=== PATIENT | male | born 1940 | race Caucasian/White ===

== ENCOUNTER 2017-09-11 14:45 | Outpatient (RCR) | payer MEDICARE ==
--- NOTE | 2017-08-21 17:22 | PT PLAN OF CARE ---
Physician: MARIAN Schroeder Patient is being seen: 1x/MO Therapist: Nohemy Iniguez, PT, DPT, CLT Medical Diagnosis: Prostate Cancer Treatment Diagnosis: Prostate Cancer Date of Onset: 05/06/17 Date of Initial Evaluation: 05/06/17 Date patient was last seen: 08/21/17 Number of treatments: 5 Number of cancellations/No shows: 0 INTERVENTIONS: Manual Therapy/STM/MET Strengthening/condition Ice/Heat Range of Motion Spinal Stabilization Ultrasound Stretching Iontophoresis Neuromuscular Re-ed Closed Chain Program Electrical Stim Posture/Body mechanics Gait Trg/Balance Trg Biofeedback Home Exercise Program Mech./Manual Traction Therapeutic Activities Pelvic Floor GOALS: In 3 months pt will have back pain centralized to the lumbar spine only and reduced to < 5/10 regularly for increased functional ability to perform ADL's. In Progress In 3 months pt will maintain FACT-G total score greater than 75 and ECOG Performance Status of less or equal to grade 2 indicating maintenance of functional status and mobility. In Progress In 6 months pt will maintain FACT-G total score greater than 75 and ECOG Performance Status of less or equal to grade 2 indicating maintenance of functional status. In Progress In 6 months pt will maintain functional strength tested by MMT of B LE of greater than 4/5 in all major muscle groups for improved functional status for performance of ADL's. In Progress PATIENT'S GOAL: Maintain function with ongoing oncological treatment. Decreased low back pain. Status of Patient's Goals: In Progress Patient Compliance: Good Prognosis: Good Reasons for continuing therapy: Pt maintains function in all his ADL's despite recent increased back pain, and pain remains centralized to the lumbar spine only. In addition pt shows improved activity level with ongoing oncological care actively participating in a home exercise program with his [employer]. Well- being scores remain constant with progression of treatment. Posture: Forward trunk lean with rounded shoulders. ROM: Lumbar Screen ROM: Flexion: pain with full movement, Ext: pt reports relief of pain with full movement, Sidebending: B pain with severe restriction of movement, L rotation: Pain with moderate restrictions of movement, R rotation: no pain with full movement Strength: LE MMT: Hip: Flexion: L 4+/5, R 4/5, Ext: B 4+/5, Abd: B 4+/5, Add: L 4/5, R 4+/5. Knee: Flexion: B 5/5, Extension: B 5/5, Ankle: PF: L 4/5, R 4+/5, DF: B 4/5 Special Tests: ECOG Performance Status: Grade 2 FACT-G 07/11/17: PWB 20/ (Initial 19), SWB 10/ (Initial 19.6), EWB 18/ ( Initial 18), FWB: (Initial 22), Total 70/108 (Initial 78.6/108) FACT-G 07/31/17: PWB 12/ (Initial 19), SWB 11/ (Initial 19.6), EWB 19/ (Initial 18), FWB: / (Initial 22), Total 63/108 (Initial 78.6/108) FACT-G 08/21/17: PWB 12/ (Initial 19), SWB 11/ (Initial 19.6), EWB 19/ ( Initial 18), FWB: (Initial 22), Total 63/108 (Initial 78.6/108) Mobility: Repeated Lumbar Flexion: Pain radiated into B LE to the level of the knee. Extension: pain centralized out of L LE to the lumbar spine only. If you have any questions or concerns please feel free to contact me at . Thank you, Nohemy Iniguez, PT, DPT, CLT MTDD
[~2017-09-11 14:45] MED LIST: ABIR250T PO; ACET-1966 PO; ATOR10TA24 PO; BICA50TA36 PO; BIMA2.5D5 OP; BISA-236 PR; CALC1TAB32 PO; CEPH500C24 PO; COMODPT OD; DEX4 PO; DOCU100C49 PO; GABA-549 PO; LATA2.5D7 OP; MAGN30TA5 PO; METF-410 PO; MIRT-25 PO; MOM PO; MULT1TAB64 PO; OMEG500C5 PO; ONDA8TAB94 PO; OXYB10TA16 PO; OXYC-823 PO; OXYC-830 PO; OXYC5TAB38 PO; POLY17PO25 PO; PRE5 PO; PRED20TA6 PO; TIAG4TAB PO; TOLT2CAP7 PO
--- NOTE | 2017-09-11 17:28 | PT PLAN OF CARE ---
Physician: MARIAN Schroeder Patient is being seen: 1-2x/MO Therapist: Nohemy Iniguez, PT, DPT, CLT Medical Diagnosis: Prostate Cancer Treatment Diagnosis: Prostate Cancer Date of Onset: 05/06/17 Date of Initial Evaluation: 05/06/17 Date patient was last seen: 09/11/17 Number of treatments: 6 Number of cancellations/No shows: 0 INTERVENTIONS: Manual Therapy/STM/MET Strengthening/condition Ice/Heat Range of Motion Spinal Stabilization Ultrasound Stretching Iontophoresis Neuromuscular Re-ed Closed Chain Program Electrical Stim Posture/Body mechanics Gait Trg/Balance Trg Biofeedback Home Exercise Program Mech./Manual Traction Therapeutic Activities Pelvic Floor GOALS: In 3 months pt will have back pain centralized to the lumbar spine only and reduced to < 5/10 regularly for increased functional ability to perform ADL's. In Progress In 3 months pt will maintain FACT-G total score greater than 75 and ECOG Performance Status of less or equal to grade 2 indicating maintenance of functional status and mobility. In Progress In 6 months pt will maintain FACT-G total score greater than 75 and ECOG Performance Status of less or equal to grade 2 indicating maintenance of functional status. In Progress In 6 months pt will maintain functional strength tested by MMT of B LE of greater than 4/5 in all major muscle groups for improved functional status for performance of ADL's. In Progress PATIENT'S GOAL: Maintain function with ongoing oncological treatment. Decreased low back pain. Status of Patient's Goals: In Progress Patient Compliance: Good Prognosis: Good Reasons for continuing therapy: Pt shows increased pain secondary to recent re- injury. However, pain was reduced following repeated lumbar extension and ambulation. Pt continues to have low well-being scores for which he attributes to decreased social support as well as side-effects from treatment. Pt educated about social support groups but denies interest. Pt educated about maintaining activities of enjoyment for emotional well-being and is to be educated next session on lifting mechanics to prevent future injury. Posture: Forward trunk lean with rounded shoulders. ROM: Lumbar Screen ROM: Flexion: pain with full movement, Ext: pt reports relief of pain with full movement, Sidebending: B pain with severe restriction of movement, L rotation: Pain with moderate restrictions of movement, R rotation: no pain with full movement Strength: LE MMT: Hip: Flexion: L 4+/5, R 4/5, Ext: B 4+/5, Abd: B 4+/5, Add: L 4/5, R 4+/5. Knee: Flexion: B 5/5, Extension: B 5/5, Ankle: PF: L 4/5, R 4+/5, DF: B 4/5 Special Tests: ECOG Performance Status: Grade 2 FACT-G 07/11/17: PWB 20/ (Initial 19), SWB 10/ (Initial 19.6), EWB 18/ ( Initial 18), FWB: 22/ (Initial 22), Total 70/108 (Initial 78.6/108) FACT-G 07/31/17: PWB 12/ (Initial 19), SWB 11/ (Initial 19.6), EWB 19/ (Initial 18), FWB: / (Initial 22), Total 63/108 (Initial 78.6/108) FACT-G 08/21/17: PWB 12/ (Initial 19), SWB 11/ (Initial 19.6), EWB 19/ ( Initial 18), FWB: / (Initial 22), Total 63/108 (Initial 78.6/108) FACT-G 09/11/17: PWB 15/ (Initial 19), SWB 13/ (Initial 19.6), EWB 12/ (Initial 18), FWB: 18/ (Initial 22), Total 58/108 (Initial 78.6/108) Mobility: Repeated Lumbar Flexion: Pain radiated into B LE to the level of the knee. Extension: pain centralized out of L LE to the lumbar spine only. If you have any questions or concerns please feel free to contact me at [phone]. Thank you, Nohemy Iniguez, PT, DPT, CLT MTDD
== END 2017-11-19 ==
LOC: PT 14:45
PROVIDERS: ATTEND Nurse Practitioner Family
DX: M54.5 Low back pain (principal); Z98.1 Arthrodesis status; Z92.21 Personal history of antineoplastic chemotherapy; C61 Malignant neoplasm of prostate

== ENCOUNTER 2017-10-21 10:19 | Outpatient (RCR) | payer MEDICARE ==
[2017-08-21 13:11] VITALS: BP 153/73
[2017-08-21] MEDS: HEPARIN FLSH (PORT) 500 UN/5ML IVP PRN (13:14)
[2017-08-21] MEDS: NS(*) 0.9% 500 ML BAG 500 ML IV PRN (13:14)
--- NOTE | 2017-08-21 14:06 | ONC Progress Note - NP.Halsey ---
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 Patient is scheduled to receive cycle 6 of docetaxel today followed by Juliano. Patient had a recent CT scan of the chest abdomen and pelvis and bone scan. These were previously reviewed by Dr. Macias But were not reviewed with patient. Overall they remain relatively stable with no evidence of increased disease. Overall patient is feeling relatively well, he does have fatigue and some swelling in his left hand just over the knuckles. He denies any trauma to the area and we' ll continue to watch to see if the swelling goes down area did patient reports mild nausea 1-2 days post-each chemotherapy. If he sleeps in a chair he does not have emesis. He does have Zofran at home but refuses to take it and denies any need for a different anti-emetic such as Compazine or Phenergan. Problem List (1) Rising PSA level (2) Prostate CA Oncology History Patient was diagnosed with adenocarcinoma of the prostate with a Parker score was 7 (3+4) diagnosed in 1999 and was treated with surgery. He then had clear progression with retroperitoneal adenopathy and a PSA of 15 and started androgen deprivation therapy with Lupron an Casodex. He did well until early 2016 when he developed a PSA of 34. We continued the Lupron and switched him to abiraterone and prednisone instead of the Casodex. Unfortunately his PSA tanvir dramatically above 300. We initiated treatment with docetaxel in April 2017. He has had five cycles, but his PSA has continued to climb. The most recent level was approximately 600. Patient is scheduled to complete cycle 6 of treatment today Psychosocial History Social History Patient is a and is reti Alcohol History He denies abuse Smoking History: No Smoking Status: Former Smoker Medications and Allergies Active Scripts Ondansetron (ZOFRAN ODT) 8 Mg Tab.rapdis, 8 MG PO Q8H, #5 TAB Prov:ISRAEL MORSE ENVIRONMENTAL COMPLIANCE ENGINEER-BC, ONC 05/20/17 Dexamethasone 4 Mg Tab (DEXAMETHASONE 4 MG TAB) 4 Mg Tab, 8 MG PO BID for 3 Days , #30 TAB 1 Refill Prov:ISRAEL MORSE ENVIRONMENTAL COMPLIANCE ENGINEER-BC, ONC 05/06/17 Prednisone 5 Mg Tab (PREDNISONE 5 MG TAB) 5 Mg Tablet, 5 MG PO BID, #60 TAB 3 Refills Prov:ISRAEL MORSE ENVIRONMENTAL COMPLIANCE ENGINEER-BC, ONC 05/06/17 Reported Medications Oxycodone Hcl (OXYCONTIN) 30 Mg Tab.er.12h, 30 MG PO TID 04/30/17 Gabapentin (GABAPENTIN) 300 Mg Capsule, 600 MG PO TID, CAPSULE 04/30/17 Oxycodone Hcl (OXYCONTIN) 10 Mg Tab.er.12h, 10 MG PO PRN, TAB 12/10/16 Multivitamin (MULTI VITAMIN DAILY) 1 Each Tablet, 1 EACH PO DAILY 01/11/16 Calcium Carb & Cit/Vitamin D3 (CALCIUM + D3 ER TABLET) 1 Each Tablet.er, 1 EACH PO QID 01/11/16 [place]-3 Fatty Acids (FISH OIL) 500 Mg Capsule.dr, 1200 MG PO DAILY 01/11/16 Latanoprost (LATANOPROST) 2.5 Ml Drops, 2.5 ML OP DAILY 01/11/16 Brimonidine/Timolol (COMBIGAN EYE DROPS) 1 Drop Drop, 1 DROP OD BID, DROP 01/11/16 Atorvastatin Calcium (LIPITOR) 10 Mg Tablet, 1 TAB PO QDAY, TAB 01/11/16 Mirtazapine (MIRTAZAPINE) 30 Mg Tablet, 30 MG PO QHS 05/23/13 Gabapentin (GABAPENTIN) 300 Mg Capsule, 300 MG PO TID 05/23/13 Metformin Hcl (METFORMIN HCL) 500 Mg Tablet, 2 TAB PO QHS 1000 MG 05/23/13 Metformin Hcl (METFORMIN HCL) 500 Mg Tablet, 1 TAB PO QAM 500 MG 05/23/13 Tolterodine Tartrate (DETROL LA) 2 Mg Cap.er.24h, 4 MG PO QDAY 05/23/13 Tiagabine Hcl (TIAGABINE HCL) 4 Mg Tablet, 4 MG PO QHS 05/23/13 Allergies: Coded Allergies: No Known Drug Allergies (Unverified , 03/25/16) Review of System/Physical Exam Review of Systems All Systems Reviewed/Normal: Yes, Except as Noted Hematologic: Positive for Fatigue (H fatigue and 8 today), Positive for Other ( Patient has pain which he rates as 7-8) Musculoskeletal: Positive for Bone Pain (This remained stable) Neurologic: Other (Swelling in the left hand just over the knuckles without evidence of erythema or pain) Physical Exam Vital Signs Temperature: 97.0 Pulse: 79 BP Systolic: 153 BP Diastolic: 73 Respiratory Rate: 16 O2 SAT: 93 O2 Delivery: Room Air Height (inches) 69.00 Weight lb: 193 Weight oz: Weight Kg (Eliot): Pain: 7 ECOG Score: 1 General: Stable, Well Developed, Well Nourished, Not In Acute Distress HEENT: No Trauma, No Conjunctivitis, No Icterus Neck: Supple Lungs: Clear to Auscultation Heart: Regular Rate, Regular Rhythm, No Gallops Abdomen: Soft and Nontender, No Hepatosplenomegaly Extremities: No Cyanosis, No Clubbing, Edema (Edema noted over the knuckles of the left hand Without evidence of erythema or skin reaction) Lymphadenopathy: No Cervical Psychiatric: Mood appears normal, Affect appears normal Skin: No Skin Rashes, No Bruising, No Purpura Diagnostic Studies Diagnostic Studies Laboratory PSA in June was 602, in July was 320, and currently 315. Laboratory Tests 08/21/17 12:57 Laboratory Tests 06/22/16 00:00: Albumin 4.3, Alkaline Phosphatase 63, Alanine Aminotransferase (ALT/SGPT) 24, Aspartate Amino Transf (AST/SGOT) 25, Blood Urea Nitrogen 18, Calcium Level 10.1 , Chloride Level 101, Carbon Dioxide Level 29, Creatinine 0.82, Glucose Level 90 , Potassium Level 4.8, Sodium Level 141, Total Protein 7.0, Total Bilirubin 0.4 08/21/17 12:57: Albumin 3.9, Alkaline Phosphatase 136, Alanine Aminotransferase (ALT/SGPT) 34, Aspartate Amino Transf (AST/SGOT) 20, Blood Urea Nitrogen 21, Calcium Level 10.1 , Chloride Level 98, Carbon Dioxide Level 23, Creatinine 0.60, Potassium Level 4.6, Sodium Level 135, Total Protein 6.5, Total Bilirubin 0.5, White Blood Count 16.7, Hemoglobin 13.7, Hematocrit 40.8, Platelet Count 250, Neutrophils (% ) (Auto) 96.5, Lymphocytes (%) (Auto) 2.0, Neutrophils # (Auto) 16.1, Lymphocytes # (Auto) 0.3, Glomerular Filtration Rate Calc > 60.0, Random Glucose 386 Assessment and Plan Assessment & Plan Patient is a very pleasant 77-year-old gentleman with the followin. Metastatic prostate cancer. Initial Parker score of 7 (3+4). He is currently on docetaxel Was started on May 07, 2017. His PSA Was 600 in June and is currently at 315.Patient completed re-staging imaging Which was determined to remain relatively stable. There was no evidence of new disease. Patient appears to be currently responding. If PSA does not continue to decrease Dr. Macias believes that he will add carboplatin. We could consider increasing his hormonal therapy as well. We will continue his Lupron indefinitely.CT chest abdomen and pelvis and bone scan were reviewed with patient today. 2. Nausea and vomiting due to chemotherapy.Patient has Zofran at home but does not use it. 3. Palliative intent therapy. Patient is aware of his status Patient will continue on current treatment and will follow with provider with his next cycle. We will continue to monitor PSA. Billing: Return visit level 4. Total time 30 minutes, counseling time 20. I personally spent a total of 35 minutes. Of that 35 minutes was counseling/ coordination of patient care/Review of CT scan and bone scan. See my note above for details. Copies to: BLAS GUTIERREZ NANCY J ENVIRONMENTAL COMPLIANCE ENGINEER-BC, ONC Aug 21, 2017 14:06
[2017-08-21 15:15] VITALS: BP 148/80
--- NOTE | 2017-09-11 12:59 | ONC Progress Note - NP.Halsey ---
Patient History Date of Service Sep 11, 2017 Reason For Visit/HPI Patient is seen in follow-up for his adenocarcinoma of his prostate. Patient is scheduled to receive cycle 7 of docetaxel today followed by Juliano. Patient continues to report that he has mild nausea 1-2 days post-each chemotherapy and then this resolves. He does have Zofran but does not take it. He reports that he is tolerating treatment fairly well. Labs are reviewed today, his calcium is slightly elevated. He has increased fatigue today but has been working outside. His pain remains at the 04/22 which is stable for him. No new concerns today. Oncology History Patient was diagnosed with adenocarcinoma of the prostate with a [place] score was 7 (3+4) diagnosed in 1999 and was treated with surgery. He then had clear progression with retroperitoneal adenopathy and a PSA of 15 and started androgen deprivation therapy with Lupron an Casodex. He did well until early 2016 when he developed a PSA of 34. We continued the Lupron and switched him to abiraterone and prednisone instead of the Casodex. Unfortunately his PSA tanvir dramatically above 300. We initiated treatment with docetaxel in April 2017. He has had five cycles, but his PSA has continued to climb. PSA went as high as 600 and is currently down to 315 Patient is scheduled to complete cycle 7 of treatment today Psychosocial History Social History Patient is a and is retired Alcohol History He denies abuse Smoking History: No Smoking Status: Former Smoker Medications and Allergies Active Scripts Prednisone 5 Mg Tab (PREDNISONE 5 MG TAB) 5 Mg Tablet, 5 MG PO BID, #60 TAB 3 Refills Prov:ISRAEL MORSE ENGAGEMENT LEAD-BC, ONC 09/11/17 Ondansetron (ZOFRAN ODT) 8 Mg Tab.rapdis, 8 MG PO Q8H, #5 TAB Prov:ISRAEL MORSE ENGAGEMENT LEAD-BC, ONC 05/20/17 Dexamethasone 4 Mg Tab (DEXAMETHASONE 4 MG TAB) 4 Mg Tab, 8 MG PO BID for 3 Days , #30 TAB 1 Refill Prov:ISRAEL MORSE ENGAGEMENT LEAD-BC, ONC 05/06/17 Reported Medications Oxycodone Hcl (OXYCONTIN) 30 Mg Tab.er.12h, 30 MG PO TID 04/30/17 Gabapentin (GABAPENTIN) 300 Mg Capsule, 600 MG PO TID, CAPSULE 04/30/17 Oxycodone Hcl (OXYCONTIN) 10 Mg Tab.er.12h, 10 MG PO PRN, TAB 12/10/16 Multivitamin (MULTI VITAMIN DAILY) 1 Each Tablet, 1 EACH PO DAILY 01/11/16 Calcium Carb & Cit/Vitamin D3 (CALCIUM + D3 ER TABLET) 1 Each Tablet.er, 1 EACH PO QID 01/11/16 [place]-3 Fatty Acids (FISH OIL) 500 Mg Capsule.dr, 1200 MG PO DAILY 01/11/16 Latanoprost (LATANOPROST) 2.5 Ml Drops, 2.5 ML OP DAILY 01/11/16 Brimonidine/Timolol (COMBIGAN EYE DROPS) 1 Drop Drop, 1 DROP OD BID, DROP 01/11/16 Atorvastatin Calcium (LIPITOR) 10 Mg Tablet, 1 TAB PO QDAY, TAB 01/11/16 Mirtazapine (MIRTAZAPINE) 30 Mg Tablet, 30 MG PO QHS 05/23/13 Gabapentin (GABAPENTIN) 300 Mg Capsule, 300 MG PO TID 05/23/13 Metformin Hcl (METFORMIN HCL) 500 Mg Tablet, 2 TAB PO QHS 1000 MG 05/23/13 Metformin Hcl (METFORMIN HCL) 500 Mg Tablet, 1 TAB PO QAM 500 MG 05/23/13 Tolterodine Tartrate (DETROL LA) 2 Mg Cap.er.24h, 4 MG PO QDAY 05/23/13 Tiagabine Hcl (TIAGABINE HCL) 4 Mg Tablet, 4 MG PO QHS 05/23/13 Allergies: Coded Allergies: No Known Drug Allergies (Unverified , 03/25/16) Review of System/Physical Exam Review of Systems All Systems Reviewed/Normal: Yes, Except as Noted Gastrointestinal: Nausea (no nausea noted today) Hematologic: Positive for Fatigue (related to 7 out of 10 today) Musculoskeletal: Positive for Bone Pain (rated as 7 out of 10 today remains stable) Neurologic: Numbness of Feet (patient reports diabetic neuropathy) Psychiatric: Other (patient is very tired today) Physical Exam Vital Signs Temperature: 97.9 Pulse: 68 BP Systolic: 148 BP Diastolic: 80 Respiratory Rate: 16 O2 SAT: 93 O2 Delivery: Room Air Height (inches) 69.00 Weight lb: 193 Weight oz: Weight Kg (Eliot): Pain: 7 ECOG Score: 1 General: Stable, Well Developed, Well Nourished, Not In Acute Distress HEENT: No Trauma Neck: Supple Lungs: Clear to Auscultation Heart: Regular Rate, Regular Rhythm, No Gallops Abdomen: Soft and Nontender, No Hepatosplenomegaly Extremities: No Cyanosis, No Edema Psychiatric: Mood appears normal, Affect appears normal Skin: No Skin Rashes, No Bruising, No Purpura Diagnostic Studies Diagnostic Studies Laboratory Item Value Date Time White Blood Count 10.2 k/uL 09/11/17 1300 Hemoglobin 14.2 g/dL 09/11/17 1300 Hematocrit 42.0 % 09/11/17 1300 Platelet Count 191 K/uL 09/11/17 1300 Neutrophils # (Auto) 8.6 K/uL H 09/11/17 1300 Random Glucose 147 mg/dl H 09/11/17 1300 Calcium Level 10.3 mg/dl H 09/11/17 1300 Alkaline Phosphatase 132 U/L H 09/11/17 1300 Prostate Specific Antigen 315.00 ng/ml H 08/21/17 1257 Laboratory Tests 08/21/17 12:57 Laboratory Tests 06/22/16 00:00: Albumin 4.3, Alkaline Phosphatase 63, Alanine Aminotransferase (ALT/SGPT) 24, Aspartate Amino Transf (AST/SGOT) 25, Blood Urea Nitrogen 18, Calcium Level 10.1 , Chloride Level 101, Carbon Dioxide Level 29, Creatinine 0.82, Glucose Level 90 , Potassium Level 4.8, Sodium Level 141, Total Protein 7.0, Total Bilirubin 0.4 08/21/17 12:57: Albumin 3.9, Alkaline Phosphatase 136, Alanine Aminotransferase (ALT/SGPT) 34, Aspartate Amino Transf (AST/SGOT) 20, Blood Urea Nitrogen 21, Calcium Level 10.1 , Chloride Level 98, Carbon Dioxide Level 23, Creatinine 0.60, Potassium Level 4.6, Sodium Level 135, Total Protein 6.5, Total Bilirubin 0.5, White Blood Count 16.7, Hemoglobin 13.7, Hematocrit 40.8, Platelet Count 250, Neutrophils (% ) (Auto) 96.5, Lymphocytes (%) (Auto) 2.0, Neutrophils # (Auto) 16.1, Lymphocytes # (Auto) 0.3, Glomerular Filtration Rate Calc > 60.0, Random Glucose 386, Prostate Specific Antigen 315.00 Assessment and Plan Assessment & Plan Patient is a very pleasant 77-year-old gentleman with the followin. Metastatic prostate cancer. Initial [place] score of 7 (3+4). He is currently on docetaxel which was started on May 07, 2017. His PSA Was 600 in June and is currently at 315. Patient completed re-staging imaging which was determined to remain relatively stable. There was no evidence of new disease. Patient appears to be currently responding to treatment. If PSA does not continue to decrease Dr. Macias believes that he will add carboplatin. We could consider increasing his hormonal therapy as well. We will continue his Lupron indefinitely. 2. Nausea and vomiting due to chemotherapy. Patient has Zofran at home but does not use it. 3. Palliative intent therapy. Patient is aware of his status 4. Back pain. Patient is currently on medication therapy with fairly good results. Pain remain stable. Patient will continue on current treatment and will follow with provider with his next cycle 8. We will continue to monitor PSA. Total time 20 minutes, counseling time 20. ISRAEL MORSE ENGAGEMENT LEAD-BC, ONC Sep 11, 2017 12:59
[2017-09-11 13:08] VITALS: BP 143/71
[2017-09-11] MEDS: DEXAMETHASONE SOD 20MG/5 ML VL IVP PRN (13:43)
[2017-09-11] MEDS: NS(*) 0.9% 500 ML BAG 500 ML IV PRN (14:00)
[2017-09-11] MEDS: HEPARIN FLSH (PORT) 500 UN/5ML IVP PRN (15:55)
[2017-09-11 15:59] VITALS: BP 146/74
[2017-09-30 10:15] VITALS: BP 140/76
[2017-10-02] MEDS: DEXAMETHASONE SOD 20MG/5 ML VL IVP PRN (13:53)
[2017-10-02 15:43] VITALS: BP 151/82
[2017-10-02 16:02] VITALS: BP 148/82
[2017-10-02] MEDS: NS(*) 0.9% 500 ML BAG 500 ML IV PRN (16:04)
[2017-10-02] MEDS: HEPARIN FLSH (PORT) 500 UN/5ML IVP PRN (16:05)
--- NOTE | 2017-10-05 17:05 | ONCOLOGY FOLLOW UP NOTE ---
EVENT DATE: September 30, 2017 CHIEF COMPLAINT/REASON FOR VISIT Mr. Curiel is a pleasant 77-year-old gentleman with metastatic prostate cancer here for followup, on docetaxel cycle seven. HISTORY OF PRESENT ILLNESS Noe returns. His initial Bellflower score was 7 (3+4) diagnosed in 1999 and treated with surgery. He then had clear progression with retroperitoneal adenopathy and a PSA of 15 and started androgen deprivation therapy with Lupron and Casodex. He did well until early 2016 when his PSA went up to 34. We continued the Lupron, but then switched him to abiraterone and prednisone instead of the Casodex. Unfortunately his PSA dramatically tanvir above 300. He initiated treated with docetaxel in April 2017. He has had five cycles, but his PSA did not respond until after five cycles. It has gone from 600 down to 277 after seven cycles. He is just now starting to respond. Overall he is tolerating therapy okay. His nausea is tolerated, but he does not like to take pills for this. We would like to get one more cycle and then take a chemotherapy holiday. 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 This may also be due to a stricture as well. PAST MEDICAL HISTORY 1. Metastatic prostate cancer. 2. Diabetes. 3. Glaucoma. 4. Hyperlipidemia. PAST SURGICAL HISTORY 1. Radical prostatectomy in 1999. 2. He had another surgery many years ago. SOCIAL HISTORY He presented by himself. He is retired. Takes care of multiple acres and several trees. One alcoholic beverage a month. Nonsmoker. He does not have any family. He enjoys woodworking and is thinking about building a garage to be able to do more woodworking. FAMILY HISTORY Noncontributory. REVIEW OF SYSTEMS CONSTITUTIONAL: No fevers, chills. Positive fatigue. HEENT: No headache or vision changes. CARDIOVASCULAR: No chest pain, dyspnea on exertion or edema. RESPIRATORY: No shortness of breath, wheeze, cough. MUSCULOSKELETAL: Positive chronic back pain and arthritis, stable. GASTROINTESTINAL: Positive nausea when he lies flat, but is able to sleep in the chair. This seems to stop around day seven of each cycle. ENDOCRINE: History of diabetes. PSYCHIATRIC: No anxiety or depression. SKIN: No concerning rashes, bruises or new lesions. LYMPHATIC: No new concerning lumps or bumps. GENITOURINARY: Positive discomfort with urination. Thinks he has a "kink" or stricture. Would like him to follow up with Urology to discuss this. PHYSICAL EXAMINATION VITAL SIGNS: Blood pressure 140/76, pulse 67, respiratory rate 16, temperature 96.3 Fahrenheit, oxygen saturation 92% on room air. Weight 95.6 kg. Pain 3/10 , fatigue 7/10. GENERAL: In stable condition, resting comfortably in the chair. HEENT: Normocephalic, atraumatic. ABDOMEN: Soft, nontender, nondistended. No masses. EXTREMITIES: No clubbing, cyanosis or edema. SKIN: No concerning rashes. Remainder of physical exam deferred to amount of time spent in counseling and coordination of care. IMPRESSION AND PLAN Sharif is a pleasant 77-year-old gentleman with the followin. Metastatic prostate cancer with an initial Velma score of 7 (3+4). We added docetaxel on May 07, 2017. His PSA tanvir initially, but has now improved from a peak of 600 down to 277. We will continue Lupron indefinitely. We could consider adding Casodex again and then adding Provenge in the new year. We would like to take a chemotherapy holiday as I think we are starting to get some neuropathy and side effects from the docetaxel. 2. Nausea and vomiting due to chemotherapy. Does not like to take his antiemetics, but they are effective. 3. Palliative intent therapy. I had an extensive discussion with the patient and we discussed the mechanisms and reason for use of immunotherapy with Provenge. He would like to consider this. We could also add the Casodex as that was effective for him. We could also look at enzalutamide as well. 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 I do worry that he will eventually succumb to his disease given its aggressive nature over the past year. I answered all of his questions. Billing: Return visit level 4. Total time 30 minutes, counseling time 20. MTDD
[2017-10-09 13:06] VITALS: BP 127/79
[2017-10-09 13:26] LABS: PLATELET COUNT, AUTOMATED 199 K/uL (150-450)
[~2017-10-21] VITALS: Ht 175.3 cm; Wt 93.8 kg
[~2017-10-21 10:19] MED LIST changes: +ALTEPLASE RECOMB 2 MG VIAL IVP PRN; +DEXTROSE 5%(*) 100 ML BAG 100 ML IVPB PRN; +DOCETAXEL IVPB ONE; +LIDOCAINE/SOD BICARB 8.4% SYR ID PRN; +NS 0.9% IVPB ONE; +NS(*) 0.9% 100 ML BAG 100 ML IVPB PRN; +PALONOSETRON 0.25 MG/5 ML VIAL IVP PRN; +PEGFILGRASTIM 6 MG/0.6 ML KIT SUBQ ONE; +PEGFILGRASTIM 6 MG/0.6 ML SYR SUBQ ONE; +WATER STERILE 10 ML VIAL IVP PRN
[2017-10-21 10:29] VITALS: BP 134/69
--- NOTE | 2017-10-22 17:47 | ONCOLOGY FOLLOW UP NOTE ---
EVENT DATE: October 21, 2016 CHIEF COMPLAINT/REASON FOR VISIT Mr. Curiel is a very pleasant 77-year-old gentleman with metastatic prostate cancer responding to docetaxel, but limited by excess toxicity. HISTORY OF PRESENT ILLNESS Noe returns. His initial Monroe score was 7 (3+4) diagnosed in 1999 and treated with surgery. He then had clear progression with retroperitoneal adenopathy and a PSA of 15 and started androgen deprivation therapy with Lupron and Casodex. He did well with this until early 2016 when his PSA went up to 34. We continued the Lupron, but then switched him to abiraterone and prednisone instead of the Casodex. Unfortunately his PSA dramatically tanvir over 300. He initiated treatment with docetaxel in April 2017 and his PSA went down from its peak of 600 to 201 after eight cycles. He is tolerating therapy okay, but the nausea, fatigue and other symptoms are building. He is starting to get neuropathy as well. He is having odd sensations in the penis due to docetaxel-induced neuropathy, which is discomforting. We need to stop the dose of docetaxel and switch to another therapy. No new symptoms today. No fevers, chills, weight change, infections. PAST MEDICAL HISTORY 1. Metastatic prostate cancer. 2. Diabetes. 3. Glaucoma. 4. Hyperlipidemia. PAST SURGICAL HISTORY 1. Radical prostatectomy in 1999. 2. Distant surgery many years ago. SOCIAL HISTORY Patient has presented by himself. He is retired and lives by himself. He takes care of multiple acres and several trees. Rare alcohol use. He enjoys woodworking. REVIEW OF SYSTEMS CONSTITUTIONAL: No fevers, chills. Positive fatigue. HEENT: No headache or vision changes. CARDIOVASCULAR: No chest pain, dyspnea on exertion or edema. RESPIRATORY: No shortness of breath, wheeze, cough. GASTROINTESTINAL: Positive nausea when he lies flat after chemotherapy. Does not like to take medicine for this. MUSCULOSKELETAL: Chronic back pain and arthritis, unchanged. ENDOCRINE: History of diabetes. PSYCHIATRIC: No anxiety or depression. SKIN: No concerning rashes or lesions. LYMPHATIC: No new lumps or bumps. GENITOURINARY: Positive discomfort with urination. Should follow up with Urology for possible Peyronie's disease. PHYSICAL EXAMINATION VITAL SIGNS: Blood pressure 134/69, pulse 72, respiratory rate 16, temperature 96.4 Fahrenheit, oxygen saturation 94% on room air. Weight 93.8 kg and stable. Pain 4/10, chronic, unchanged. Fatigue 7/10. GENERAL: Stable condition, resting comfortably in the chair. HEENT: Normocephalic, atraumatic. CARDIOVASCULAR: Regular rate and rhythm. LUNGS: Clear to auscultation bilaterally. ABDOMEN: Soft, nontender, nondistended. EXTREMITIES: No clubbing, cyanosis or edema. His edema is improving in his feet and left hand. I would call it 1+ at this point. Remainder of physical exam unremarkable. IMPRESSION AND PLAN Sharif is a pleasant 77-year-old gentleman with the followin. Metastatic prostate cancer with an initial Velma score of 7 (3+4). We added docetaxel in April 2017 with eight cycles and excellent response with the PSA peaking at 600 and going down to 201. We will continue the Lupron indefinitely. Could consider adding the Casodex again, but would like to start Provenge as well. If he progresses I will immediately begin the Casodex again. We need to take a chemotherapy holiday due to the neuropathy and other side effects of docetaxel. We could consider carboplatin in the future. 2. Nausea and vomiting due to chemotherapy, mild. I answered all of his questions today. We again reviewed the above plan, including discussion of Provenge. We will need to work for financial assistance to be able to achieve this. Billing: Return visit level 4. Total time 30 minutes, counseling time 20. MTDD
== END 2017-11-18 ==
LOC: ONC 10:19
PROVIDERS: ATTEND Internal Medicine
DX: Z51.11 Encounter for antineoplastic chemotherapy (principal); C61 Malignant neoplasm of prostate; R11.2 Nausea with vomiting, unspecified; R53.83 Other fatigue; Z92.21 Personal history of antineoplastic chemotherapy; Z79.899 Other long term (current) drug therapy
CPT/HCPCS: 36591; 84153; 85025; 85027; 96372; 96375; 96413; G0463; J1100; J1642; J2505; J7040; J7050; J9171; 82040; 82247; 82310; 82374; 82435; 82565; 82947; 84075; 84132; 84155; 84295; 84450; 84460; 84520; 99212

== ENCOUNTER 2017-12-16 12:02 | Outpatient (RCR) | payer MEDICARE ==
[2017-11-22] MEDS: HEPARIN FLSH (PORT) 500 UN/5ML IVP PRN (14:32)
[2017-11-22 14:33] VITALS: BP 138/78
[2017-11-22 14:43] LABS: PLATELET COUNT, AUTOMATED 184 K/uL (150-450)
[2017-11-25 09:54] VITALS: BP 121/70
--- NOTE | 2017-11-26 18:21 | ONCOLOGY FOLLOW UP NOTE ---
EVENT DATE: November 25, 2017 CHIEF COMPLAINT/REASON FOR VISIT Mr. Curiel is a very pleasant 77-year-old gentleman with metastatic prostate cancer, most recently on docetaxel, here for followup. HISTORY OF PRESENT ILLNESS Noe returns. When I saw him last month we had discussed use with Shad and he was ready to move forward with that. Unfortunately the drive time and frequent visits to [place] to receive this therapy were prohibitive to him. He responded well to docetaxel and continues to have his PSA drop slowly, although it is reaching a plateau. He was unable to stop it due to neuropathy and other significant side effects. He is still recovering from the fatigue. His PSA peaked in the 600s and is down to 181 this month. We discussed other options including high dose Casodex as well as carboplatin. He would like to move forward with carboplatin. PAST MEDICAL HISTORY 1. Metastatic prostate cancer. 2. Diabetes. 3. Glaucoma. 4. Hyperlipidemia. PAST SURGICAL HISTORY 1. Radical prostatectomy in 1999. 2. Distant surgery many years ago. SOCIAL HISTORY Patient has presented by himself. He is retired and lives by himself. He takes care of multiple acres and several trees. He enjoys woodworking. REVIEW OF SYSTEMS CONSTITUTIONAL: No fevers, chills. Positive fatigue. Slight improvement. HEENT: No headache or vision changes. CARDIOVASCULAR: No chest pain, dyspnea on exertion or edema. RESPIRATORY: No shortness of breath, wheeze, cough. GASTROINTESTINAL: No nausea, vomiting. He did have significant nausea with the docetaxel. MUSCULOSKELETAL: Chronic back pain, unchanged. ENDOCRINE: History of diabetes. PSYCHIATRIC: No anxiety or depression. SKIN: No concerning rashes or lesions. LYMPHATIC: No concerning lumps or bumps. GENITOURINARY: No issues at this time. Follows with Dr. Mills. He may have possible Peyronie's disease based on his description. PHYSICAL EXAMINATION VITAL SIGNS: Blood pressure 121/70, pulse 67, respiratory rate 16, temperature 96.5 Fahrenheit, oxygen saturation 98% on room air. Weight 96.5 kg. Pain 6/10 , fatigue 7/10. GENERAL: In stable condition, resting comfortably in the chair. HEENT: Normocephalic, atraumatic. LUNGS: Clear. No respiratory distress. ABDOMEN: Soft, nontender. EXTREMITIES: He does have some edema in the feet and left hand, 1+, unchanged. Remainder of the physical exam unremarkable. IMPRESSION AND PLAN Sharif is a very pleasant 77-year-old with the followin. Metastatic prostate cancer with an initial Milton score of 7 (3+4). He started docetaxel in April 2017 with eight cycles with excellent response with the PSA peaking above 600 and going down to 181. We will continue the Lupron indefinitely. We could consider adding the Casodex again. We have taken a chemotherapy holiday due the neuropathy and we would like to consider starting the carboplatin as his PSA is still above 100. He is okay with this. We discussed side effects, and although they are different from the docetaxel we can see more myelosuppression with this. 2. Nausea and vomiting due to docetaxel, essentially resolved. He is deferring the Provenge due to the amount of time required in the car. I answered all of his questions today. Ready to move forward with carboplatin. Billing: Return visit level 3. Total time 20 minutes, counseling time 15. MTDD
[2017-12-06 10:39] VITALS: BP 134/71
--- NOTE | 2017-12-06 13:01 | ONC Progress Note - NP.Halsey ---
Patient History Date of Service Dec 06, 2017 Reason For Visit/HPI Patient is seen in the clinic today for initiation and education of carboplatin for his metastatic prostate cancer. Patient most recently was on docetaxel. Patient reports that overall he is feeling well, he continues to have fatigue and some leg discomfort. He has neuropathy in his feet bilaterally but to be related to his diabetes. Previously he had neuropathy in his hands but he reports that this is resolved. Patient recently followed with Dr. Macias to discuss the use of Provenge for his treatment however he did not feel like he could travel to [place] and preferred to have a different form of therapy. Patient previously responded to dose he Taxol however his PSA reached a plateau. Problem List (1) Rising PSA level (2) Prostate CA (3) Bone metastases Oncology History Metastatic prostate cancer with an initial Velma score of 7 (3+4). He started docetaxel in April 2017 with eight cycles with excellent response with the PSA peaking above 600 and going down to 181. He is on Lupron indefinitely. Casodex may be reconsidered. . Patient will start weekly carboplatin on 12/06/2017. Education was completed. Psychosocial History Smoking History: No Smoking Status: Former Smoker Medications and Allergies Active Scripts Ondansetron (ZOFRAN ODT) 8 Mg Tab.rapdis, 8 MG PO Q8H, #5 TAB Prov:ISRAEL MORSE SOMMELIER-BC, ONC 05/20/17 Dexamethasone 4 Mg Tab (DEXAMETHASONE 4 MG TAB) 4 Mg Tab, 8 MG PO BID for 3 Days , #30 TAB 1 Refill Prov:ISRAEL MORSE SOMMELIER-BC, ONC 05/06/17 Reported Medications Oxycodone Hcl (OXYCONTIN) 30 Mg Tab.er.12h, 30 MG PO TID 04/30/17 Gabapentin (GABAPENTIN) 300 Mg Capsule, 600 MG PO TID, CAPSULE 04/30/17 Oxycodone Hcl (OXYCONTIN) 10 Mg Tab.er.12h, 10 MG PO PRN, TAB 12/10/16 Multivitamin (MULTI VITAMIN DAILY) 1 Each Tablet, 1 EACH PO DAILY 01/11/16 Calcium Carb & Cit/Vitamin D3 (CALCIUM + D3 ER TABLET) 1 Each Tablet.er, 1 EACH PO QID 01/11/16 [place]-3 Fatty Acids (FISH OIL) 500 Mg Capsule.dr, 1200 MG PO DAILY 01/11/16 Latanoprost (LATANOPROST) 2.5 Ml Drops, 2.5 ML OP DAILY 01/11/16 Brimonidine/Timolol (COMBIGAN EYE DROPS) 1 Drop Drop, 1 DROP OD BID, DROP 01/11/16 Atorvastatin Calcium (LIPITOR) 10 Mg Tablet, 1 TAB PO QDAY, TAB 01/11/16 Mirtazapine (MIRTAZAPINE) 30 Mg Tablet, 30 MG PO QHS 05/23/13 Gabapentin (GABAPENTIN) 300 Mg Capsule, 300 MG PO TID 05/23/13 Metformin Hcl (METFORMIN HCL) 500 Mg Tablet, 2 TAB PO QHS 1000 MG 05/23/13 Metformin Hcl (METFORMIN HCL) 500 Mg Tablet, 1 TAB PO QAM 500 MG 05/23/13 Tolterodine Tartrate (DETROL LA) 2 Mg Cap.er.24h, 4 MG PO QDAY 05/23/13 Tiagabine Hcl (TIAGABINE HCL) 4 Mg Tablet, 4 MG PO QHS 05/23/13 Allergies: Coded Allergies: No Known Drug Allergies (Unverified , 03/25/16) Review of System/Physical Exam Review of Systems All Systems Reviewed/Normal: Yes, Except as Noted Hematologic: Positive for Fatigue Musculoskeletal: Positive for Bone Pain Neurologic: Numbness of Feet Physical Exam Vital Signs Temperature: 97.4 Pulse: 75 BP Systolic: 134 BP Diastolic: 71 Respiratory Rate: 16 O2 SAT: 90 O2 Delivery: Room Air Height (inches) 69.00 Weight lb: 193 Weight oz: Weight Kg (Eliot): [id number] Pain: 3 ECOG Score: 1 General: Stable, Well Developed, Well Nourished, Not In Acute Distress HEENT: No Trauma, No Conjunctivitis, No Icterus, No Mucositis Neck: Supple Lungs: Clear to Auscultation Heart: Regular Rate, Regular Rhythm, No Gallops, No Murmurs Abdomen: Soft and Nontender, No Hepatosplenomegaly, No Masses Extremities: No Cyanosis, No Clubbing, No Edema Lymphadenopathy: No Cervical Psychiatric: Mood appears normal, Affect appears normal Skin: No Skin Rashes, No Bruising, No Purpura Chemo Education Chemotherapy Education: Patient is seen today for education regarding chemotherapy with carboplatin for his metastatic prostate cancer. The treatment schedule and associated appointments were discussed and reviewed. A print out will be given to the patient. The intent for treatment is palliative. Consent for treatment was completed prior to receiving treatment. Mechanism of action and associated side effects of carboplatin and premedications were discussed. The patient is at increased risk for infection related to bone marrow suppression with chemotherapy. Signs and symptoms of infection were reviewed with recommendation of calling the clinic if fever, chills or a temperature of 100.5 or greater is experienced. Regular monitoring of blood work will be completed and treatment will be held if appropriate. The patient is at increased risk of nausea and vomiting related to chemotherapy. Home antiemetics were reviewed with a schedule of when to take them. Patient has Zofran at home. Increased bowel movements or diarrhea may occur. The use of Imodium was reviewed and encouraged to have on hand. Dehydration from decreased intake, nausea or diarrhea could also occur. Side effects of dehydration were reviewed and hydration will be given as needed. Self-care strategies to minimize any symptoms from treatment were taught and written material was given for further review at home. The strategies included: dietary modifications for nausea, diarrhea, fatigue and/or mouth sores, exercise and resting for fatigue, hydration for dehydration, and skin care for dry skin reactions. In addition, safety measures for IV chemotherapy to prevent teratogenic side effects to others was reviewed in detail to include good hand washing, double flushing, and what to do during sexual intercourse. Patient is not sexually active. Diagnostic Studies Diagnostic Studies Laboratory Laboratory Tests 12/06/17 11:08 Laboratory Tests 06/22/16 00:00: Albumin 4.3, Alkaline Phosphatase 63, Alanine Aminotransferase (ALT/SGPT) 24, Aspartate Amino Transf (AST/SGOT) 25, Blood Urea Nitrogen 18, Calcium Level 10.1 , Chloride Level 101, Carbon Dioxide Level 29, Creatinine 0.82, Glucose Level 90 , Potassium Level 4.8, Sodium Level 141, Total Protein 7.0, Total Bilirubin 0.4 11/22/17 14:30: Red Blood Count 4.72, Mean Corpuscular Volume 95.1, Mean Corpuscular Hemoglobin 31.6, Mean Corpuscular Hemoglobin Concent 33.2, Red Cell Distribution Width 14.0 , Mean Platelet Volume 8.4, Monocytes (%) (Auto) 6.1, Eosinophils (%) (Auto) 3.2 , Basophils (%) (Auto) 1.2, Nucleated RBC Relative Count (auto) 0.0, Monocytes # (Auto) 0.4, Eosinophils # (Auto) 0.2, Basophils # (Auto) 0.1, Nucleated RBC Absolute Count (auto) 0.00, Prostate Specific Antigen 181.00 12/06/17 11:08: Albumin 3.8, Alkaline Phosphatase 157, Alanine Aminotransferase (ALT/SGPT) 30, Aspartate Amino Transf (AST/SGOT) 19, Blood Urea Nitrogen 17, Calcium Level 9.6 , Chloride Level 101, Carbon Dioxide Level 27, Creatinine 0.70, Potassium Level 4.0, Sodium Level 139, Total Protein 6.8, Total Bilirubin 0.5, White Blood Count 5.4, Hemoglobin 14.9, Hematocrit 44.9, Platelet Count 185, Neutrophils (% ) (Auto) 62.6, Lymphocytes (%) (Auto) 25.2, Neutrophils # (Auto) 3.4, Lymphocytes # (Auto) 1.4, Glomerular Filtration Rate Calc > 60.0, Random Glucose 120 Assessment and Plan Assessment & Plan Patient is a very pleasant 77-year-old male with the followin. Metastatic prostate cancer with an initial Parlin score of 7 (3+4). He started docetaxel in April 2017 with eight cycles with excellent response with the PSA peaking above 600 and going down to 181. Lupron oh continue indefinitely. Dr. Zee may consider adding the Casodex again. Patient has been on a chemotherapy holiday due the neuropathy and is scheduled to start carboplatin today. I discussed side effects with patient today and a consent was signed. I personally spent a total of 35 minutes. Of that 30 minutes was counseling/ coordination of patient's care. See my note above for details. ISRAEL MORSE SOMMELIER-BC, ONC Dec 06, 2017 13:01
[2017-12-06 13:55] VITALS: BP 135/60
[2017-12-06] MEDS: HEPARIN FLSH (PORT) 500 UN/5ML IVP PRN (13:58)
[2017-12-06] MEDS: NS(*) 0.9% 500 ML BAG 500 ML IV PRN (14:29)
[~2017-12-16] VITALS: Ht 175.3 cm; Wt 93.6 kg
[~2017-12-16 12:02] MED LIST changes: +CARBOPLATIN IVPB ONE; +DEXAMETHASONE SOD PHOS 10MG/ML IVP PRN; -DOCETAXEL IVPB ONE; -METF-410 PO; +METF-411 PO; +ONDANSETRON 4 MG/2 ML VIAL IVP PRN; -PALONOSETRON 0.25 MG/5 ML VIAL IVP PRN; -PEGFILGRASTIM 6 MG/0.6 ML KIT SUBQ ONE; -PEGFILGRASTIM 6 MG/0.6 ML SYR SUBQ ONE
[2017-12-16] MEDS: NS(*) 0.9% 500 ML BAG 500 ML IV PRN (12:15)
[2017-12-16 12:18] VITALS: BP 122/63
[2017-12-16] MEDS ORDERED: GABA-549 PO (12:41)
[2017-12-16] MEDS: HEPARIN FLSH (PORT) 500 UN/5ML IVP PRN (13:40)
[2017-12-16] MEDS ORDERED: DAPA1TAB PO (14:26)
--- NOTE | 2017-12-19 06:35 | ONCOLOGY FOLLOW UP NOTE ---
EVENT DATE: December 19, 2017 CHIEF COMPLAINT/REASON FOR VISIT Mr. Curiel is a very pleasant 77-year-old gentleman with metastatic prostate cancer, here for followup. HISTORY OF PRESENT ILLNESS Noe returns. When I last saw him, we discussed Provenge, and he was ready to move forward with that. However, the frequent trips to [place] were too prohibitive for him. We then discussed carboplatin. He was ready to receive therapy today, however, he is having second thoughts about this. He feels that his neuropathic pain, which likely worsened with the docetaxel, is not a good quality of life, and he does not know if he wants to take more chemotherapy to extend his life. I think this is reasonable. We will continue the chemotherapy and treatment holiday. I do think it would be reasonable to consider hospice, but he does not feel he is quite ready for that. I also advised him about the potential of a pain clinic referral. He has utilized them in the past and does not feel that this is appropriate. He would like to follow up with Dr. Philip to discuss other options to control his neuropathic pain. He is on maximum dose gabapentin, however. He tried Lyrica in the past, and this was not effective. I do not have other ideas for him to improve his pain. PAST MEDICAL HISTORY 1. Metastatic prostate cancer. 2. Diabetes. 3. Glaucoma. 4. Hyperlipidemia. PAST SURGICAL HISTORY 1. Radical prostatectomy in 1999. 2. Distant surgery many years ago. SOCIAL HISTORY The patient has presented by himself. He is retired and lives by himself. He takes care of multiple acres and several trees. He enjoys woodworking. REVIEW OF SYSTEMS CONSTITUTIONAL: No fevers, chills. Positive fatigue. NEUROLOGIC: His biggest complaint is neuropathic pain. SKIN: He does have a diabetic ulcer, which is not bothering him currently, on the dorsum of his foot. CARDIOVASCULAR: No chest pain, dyspnea on exertion, edema. RESPIRATORY: No shortness of breath, wheeze, or cough. GI: No nausea or vomiting. He did have significant nausea with the docetaxel but avoided medicines. MUSCULOSKELETAL: Chronic back pain, unchanged. ENDOCRINE: History of diabetes. PSYCHIATRIC: No anxiety or depression. No suicidal ideation by report from my nurse today. SKIN: No other concerning rashes or lesions. LYMPHATIC: No new concerning lumps or bumps. PHYSICAL EXAMINATION VITAL SIGNS: Blood pressure 122/63, pulse 63, height 175.26 cm, weight 93.6 kg , BSA 2.09. Pain 8/10 in the feet. Fatigue 1/10. GENERAL: Stable condition, resting comfortably in the chair. ECOG Performance Status of 1-2. HEENT: Normocephalic, atraumatic. NEUROLOGIC: Numbness and pain in the legs, particularly in the feet. Full physical exam deferred today due to amount of time spent counseling and goals of care discussion. IMPRESSION AND PLAN Noe is a very pleasant 77-year-old gentleman with the followin. Metastatic prostate cancer with an initial Velma score of 7 (3 + 4). He started docetaxel in April of 2017 with eight cycles and excellent response with the PSA peaking at 600 and going down to 181. We can continue the Lupron indefinitely and consider adding Casodex again. We discussed adding carboplatin , but he is now hesitant to do this as he does not want to extend his life if his neuropathic pain is going to be this bad. We discussed many options including pain clinic and palliative care services, but he is not interested in these. He would like to follow up with Dr. Philip, which is very reasonable. I will ask him to make an appointment to discuss alternative options. Will continue to follow him closely. I answered all of his many questions today. Billing : Level 4 Total time: 30 minutes Counselling time: 20 minutes AMANDA
== END 2018-02-19 ==
LOC: ONC 12:02
PROVIDERS: ATTEND Internal Medicine
DX: Z51.11 Encounter for antineoplastic chemotherapy (principal); C61 Malignant neoplasm of prostate; G62.0 Drug-induced polyneuropathy; R11.2 Nausea with vomiting, unspecified; R53.83 Other fatigue; E11.40 Type 2 diabetes mellitus with diabetic neuropathy, unspecified; C79.51 Secondary malignant neoplasm of bone; Z79.899 Other long term (current) drug therapy
CPT/HCPCS: 36591; 84153; 85025; 85027; 96375; 96413; G0463; J1100; J1642; J2405; J7040; J7050; J9045; 82040; 82247; 82310; 82374; 82435; 82565; 82947; 84075; 84132; 84155; 84295; 84450; 84460; 84520; 99212

== ENCOUNTER 2018-04-08 18:45 | Emergency (ER) | payer MEDICARE ==
[~2018-04-08 18:45] MED LIST changes: -ALTEPLASE RECOMB 2 MG VIAL IVP PRN; -CARBOPLATIN IVPB ONE; +DAPA1TAB PO; -DEXAMETHASONE SOD PHOS 10MG/ML IVP PRN; -DEXTROSE 5%(*) 100 ML BAG 100 ML IVPB PRN; -LIDOCAINE/SOD BICARB 8.4% SYR ID PRN; -NS 0.9% IVPB ONE; -NS(*) 0.9% 100 ML BAG 100 ML IVPB PRN; -ONDANSETRON 4 MG/2 ML VIAL IVP PRN; -WATER STERILE 10 ML VIAL IVP PRN
--- NOTE | 2018-04-08 18:59 | ER Report ---
History and Physical Time Seen By MD: 18:59 HPI/ROS CHIEF COMPLAINT: Metastatic Prostate cancer, ran out of pain medication HISTORY OF PRESENT ILLNESS: 78-year-old male with metastatic prostate cancer followed by oncology clinic. He received chemotherapy today. He is on chronic pain management. He takes OxyContin 30 mg 3 times a day and oxycodone 10 mg when necessary for breakthrough pain. He ran out of his medications. His last dose was approximately 12 hours ago. He's here with vomiting and not feeling well. During his last oncology visit in December of this year. They were considering hospice. Patient was reluctant to proceed with further chemotherapy. He's alert. He had extensive treatment. See oncology notes. Patient denies fever, chills, chest pain or shortness of breath. REVIEW OF SYSTEMS: Respiratory: No cough, no dyspnea. Cardiovascular: No chest pain, no palpitations. Gastrointestinal: As above Musculoskeletal: No back pain. Allergies: Coded Allergies: No Known Drug Allergies (Unverified , 03/25/16) Home Meds Active Scripts Oxycodone Hcl (OXYCONTIN) 10 Mg Tab.er.12h, 10 MG PO Q12H Y for breakthrough pain, #60 TAB Prov:RODRIGUE DUFF DO 04/08/18 Oxycodone Hcl (OXYCONTIN) 30 Mg Tab.er.12h, 30 MG PO TID for metastatic prostate pain relie, #90 Prov:RODRIGUE DUFF DO 04/08/18 Ondansetron (ZOFRAN ODT) 8 Mg Tab.rapdis, 8 MG PO Q8H, #5 TAB Prov:ISRAEL MORSE RESEARCH PROFESSOR-BC, ONC 05/20/17 Dexamethasone 4 Mg Tab (DEXAMETHASONE 4 MG TAB) 4 Mg Tab, 8 MG PO BID for 3 Days , #30 TAB 1 Refill Prov:ISRAEL MORSE RESEARCH PROFESSOR-BC, ONC 05/06/17 Reported Medications Dapagliflozin/Metformin HCl (Xigduo Xr 5 mg-500 mg Tablet) 1 Each Tab.bp.24h, 2 TAB PO DAILY 12/16/17 Gabapentin (GABAPENTIN) 300 Mg Capsule, 900 MG PO TID, CAPSULE 12/16/17 Oxycodone Hcl (OXYCONTIN) 30 Mg Tab.er.12h, 30 MG PO TID 04/30/17 Oxycodone Hcl (OXYCONTIN) 10 Mg Tab.er.12h, 10 MG PO PRN, TAB 12/10/16 Multivitamin (MULTI VITAMIN DAILY) 1 Each Tablet, 1 EACH PO DAILY 01/11/16 Calcium Carb & Cit/Vitamin D3 (CALCIUM + D3 ER TABLET) 1 Each Tablet.er, 1 EACH PO QID 01/11/16 [place]-3 Fatty Acids (FISH OIL) 500 Mg Capsule.dr, 1200 MG PO DAILY 01/11/16 Latanoprost (LATANOPROST) 2.5 Ml Drops, 2.5 ML OP DAILY 01/11/16 Brimonidine/Timolol (COMBIGAN EYE DROPS) 1 Drop Drop, 1 DROP OD BID, DROP 01/11/16 Atorvastatin Calcium (LIPITOR) 10 Mg Tablet, 1 TAB PO QDAY, TAB 01/11/16 Mirtazapine (MIRTAZAPINE) 30 Mg Tablet, 30 MG PO QHS 05/23/13 Metformin Hcl (METFORMIN HCL) 500 Mg Tablet, 2 TAB PO QHS 1000 MG 05/23/13 Metformin Hcl (METFORMIN HCL) 500 Mg Tablet, 1 TAB PO QAM 500 MG 05/23/13 Tolterodine Tartrate (DETROL LA) 2 Mg Cap.er.24h, 4 MG PO QDAY 05/23/13 Tiagabine Hcl (TIAGABINE HCL) 4 Mg Tablet, 4 MG PO QHS 05/23/13 Past Medical/Surgical History Metastatic prostate cancer, glaucoma, type II diabetes, insulin required Reviewed Nurses Notes: Yes Old Medical Records Reviewed: Yes Hx Smoking: No Smoking Status: Former Smoker Hx Substance Use Disorder: No Hx Alcohol Use: Yes Constitutional Vital Sign - Last 24 Hours 04/08/18 04/08/18 04/08/18 04/08/18 19:02 19:04 19:15 19:30 Temp 98.7 Pulse 81 76 Resp 19 B/P (MAP) 151/73 (99) 151/73 131/69 (89) Pulse Ox 97 88 O2 Delivery Room Air 04/08/18 04/08/18 04/08/18 04/08/18 19:45 20:00 20:15 20:30 Pulse 80 83 B/P (MAP) 124/66 (85) 122/69 (86) Pulse Ox 94 97 04/08/18 04/08/18 20:35 21:00 Pulse 76 B/P (MAP) 132/73 (92) Pulse Ox 96 Physical Exam General Appearance: The patient is alert, has no immediate need for airway protection and no current signs of toxicity. Moderate distress, uncomfortable appearing HEENT: Pupils equal and round no injection. TMs normal, oropharynx without redness or exudate, mucous. Membranes are moist Respiratory: Chest is non tender, lungs are clear to auscultation. Cardiac: regular rate and rhythm Gastrointestinal: Abdomen is soft and non tender, no masses, bowel sounds normal. Musculoskeletal: Neck: Neck is supple and non tender. Extremities have full range of motion and are non tender. Skin: No rashes or lesions. DIFFERENTIAL DIAGNOSIS: After history and physical exam differential diagnosis was considered for abdominal pain including but not limited to appendicitis, cholecystitis, gastritis and urinary tract infection., Metastatic prostate cancer, opiate withdrawal Medical Decision Making Data Points Result Diagram: 04/08/18192804/08/181928 Laboratory Hematology Test 06/22/16 00:00 04/08/18 19:29 04/08/18 19:40 Albumin 4.3 G/DL (3.5-5) 4.2 g/dl (3.5-5.0) Alkaline Phosphatase 63 IU/L (50-136) 205 U/L (0-126) Alanine Aminotransferase (ALT/SGPT) 24 U/L (9-53) 18 U/L (0-56) Aspartate Amino Transf (AST/SGOT) 25 IU/L (7-37) 31 U/L (0-35) Blood Urea Nitrogen 18 MG/DL (0-22) 17 mg/dl (9-21) Calcium Level 10.1 MG/DL (8.4-10.2) 10.4 mg/dl (8.4-10.2) Chloride Level 101 MMOL/L (22-30) 102 mmol/L (98-107) Carbon Dioxide Level 29 MMOL/L (22-32) 23 mmol/L (22-30) Creatinine 0.82 MG/DL (0.76-1.27) 0.70 mg/dl (0.66-1.25) Glucose Level 90 MG/DL (35-115) Potassium Level 4.8 MMOL/L (3.5-5.2) 3.3 mmol/L (3.5-5.0) Sodium Level 141 MG/DL (134-144) 141 mmol/L (137-145) Total Protein 7.0 G/DL (6.0-8.5) 7.6 g/dl (6.3-8.2) Total Bilirubin 0.4 MG/DL (0.0-1.2) 0.8 mg/dl (0.2-1.3) Red Blood Count 5.10 M/uL (4.00-5.60) Mean Corpuscular Volume 90.4 fL (80.0-96.0) Mean Corpuscular Hemoglobin 31.1 pg (26.0-33.0) Mean Corpuscular Hemoglobin Concent 34.4 g/dL (32.0-36.0) Red Cell Distribution Width 14.9 % (11.5-14.5) Mean Platelet Volume 8.6 fL (7.2-11.1) Neutrophils (%) (Auto) 79.5 % (39.4-72.5) Lymphocytes (%) (Auto) 14.3 % (17.6-49.6) Monocytes (%) (Auto) 5.4 % (4.1-12.4) Eosinophils (%) (Auto) 0.3 % (0.4-6.7) Basophils (%) (Auto) 0.5 % (0.3-1.4) Nucleated RBC Relative Count (auto) 0.0 /100WBC Neutrophils # (Auto) 5.5 K/uL (2.0-7.4) Lymphocytes # (Auto) 1.0 K/uL (1.3-3.6) Monocytes # (Auto) 0.4 K/uL (0.3-1.0) Eosinophils # (Auto) 0.0 K/uL (0.0-0.5) Basophils # (Auto) 0.0 K/uL (0.0-0.1) Nucleated RBC Absolute Count (auto) 0.00 K/uL Glomerular Filtration Rate Calc > 60.0 Random Glucose 191 mg/dl (75-110) Amylase Level 54 U/L (0-110) Lipase 29 U/L (23-300) Urine Color Yellow Urine Clarity Clear Urine pH 6.0 pH (4.8-9.5) Urine Specific [place] 1.029 Urine Protein Negative mg/dL (NEGATIVE) Urine Glucose (UA) 500 mg/dL (NEGATIVE) Urine Ketones 20 mg/dL (NEGATIVE) Urine Blood Negative (NEGATIVE) Urine Nitrite Negative (NEGATIVE) Urine Bilirubin Negative (NEGATIVE) Urine Urobilinogen Negative mg/dL (0.2-1.9) Urine Leukocyte Esterase Negative (NEGATIVE) Urine RBC 1 /HPF (0-2/HPF) Urine WBC 1 /HPF (0-5/HPF) Urine Squamous Epithelial Cells Few /LPF (</=FEW) Urine Bacteria Negative /HPF (NONE-FEW) Urine Mucus None /HPF (NONE-FEW) Chemistry Test 06/22/16 00:00 04/08/18 19:29 04/08/18 19:40 Albumin 4.3 G/DL (3.5-5) 4.2 g/dl (3.5-5.0) Alkaline Phosphatase 63 IU/L (50-136) 205 U/L (0-126) Alanine Aminotransferase (ALT/SGPT) 24 U/L (9-53) 18 U/L (0-56) Aspartate Amino Transf (AST/SGOT) 25 IU/L (7-37) 31 U/L (0-35) Blood Urea Nitrogen 18 MG/DL (0-22) Calcium Level 10.1 MG/DL (8.4-10.2) 10.4 mg/dl (8.4-10.2) Chloride Level 101 MMOL/L (22-30) Carbon Dioxide Level 29 MMOL/L (22-32) Creatinine 0.82 MG/DL (0.76-1.27) Glucose Level 90 MG/DL (35-115) Potassium Level 4.8 MMOL/L (3.5-5.2) Sodium Level 141 MG/DL (134-144) Total Protein 7.0 G/DL (6.0-8.5) 7.6 g/dl (6.3-8.2) Total Bilirubin 0.4 MG/DL (0.0-1.2) 0.8 mg/dl (0.2-1.3) White Blood Count 6.9 k/uL (4.5-11.0) Red Blood Count 5.10 M/uL (4.00-5.60) Hemoglobin 15.9 g/dL (14.0-18.0) Hematocrit 46.1 % (42.0-52.0) Mean Corpuscular Volume 90.4 fL (80.0-96.0) Mean Corpuscular Hemoglobin 31.1 pg (26.0-33.0) Mean Corpuscular Hemoglobin Concent 34.4 g/dL (32.0-36.0) Red Cell Distribution Width 14.9 % (11.5-14.5) Platelet Count 193 K/uL (150-450) Mean Platelet Volume 8.6 fL (7.2-11.1) Neutrophils (%) (Auto) 79.5 % (39.4-72.5) Lymphocytes (%) (Auto) 14.3 % (17.6-49.6) Monocytes (%) (Auto) 5.4 % (4.1-12.4) Eosinophils (%) (Auto) 0.3 % (0.4-6.7) Basophils (%) (Auto) 0.5 % (0.3-1.4) Nucleated RBC Relative Count (auto) 0.0 /100WBC Neutrophils # (Auto) 5.5 K/uL (2.0-7.4) Lymphocytes # (Auto) 1.0 K/uL (1.3-3.6) Monocytes # (Auto) 0.4 K/uL (0.3-1.0) Eosinophils # (Auto) 0.0 K/uL (0.0-0.5) Basophils # (Auto) 0.0 K/uL (0.0-0.1) Nucleated RBC Absolute Count (auto) 0.00 K/uL Glomerular Filtration Rate Calc > 60.0 Amylase Level 54 U/L (0-110) Lipase 29 U/L (23-300) Urine Color Yellow Urine Clarity Clear Urine pH 6.0 pH (4.8-9.5) Urine Specific [place] 1.029 Urine Protein Negative mg/dL (NEGATIVE) Urine Glucose (UA) 500 mg/dL (NEGATIVE) Urine Ketones 20 mg/dL (NEGATIVE) Urine Blood Negative (NEGATIVE) Urine Nitrite Negative (NEGATIVE) Urine Bilirubin Negative (NEGATIVE) Urine Urobilinogen Negative mg/dL (0.2-1.9) Urine Leukocyte Esterase Negative (NEGATIVE) Urine RBC 1 /HPF (0-2/HPF) Urine WBC 1 /HPF (0-5/HPF) Urine Squamous Epithelial Cells Few /LPF (</=FEW) Urine Bacteria Negative /HPF (NONE-FEW) Urine Mucus None /HPF (NONE-FEW) Urinalysis Test 04/08/18 19:40 Urine Color Yellow Urine Clarity Clear Urine pH 6.0 pH (4.8-9.5) Urine Specific [place] 1.029 Urine Protein Negative mg/dL (NEGATIVE) Urine Glucose (UA) 500 mg/dL (NEGATIVE) Urine Ketones 20 mg/dL (NEGATIVE) Urine Blood Negative (NEGATIVE) Urine Nitrite Negative (NEGATIVE) Urine Bilirubin Negative (NEGATIVE) Urine Urobilinogen Negative mg/dL (0.2-1.9) Urine Leukocyte Esterase Negative (NEGATIVE) Urine RBC 1 /HPF (0-2/HPF) Urine WBC 1 /HPF (0-5/HPF) Urine Squamous Epithelial Cells Few /LPF (</=FEW) Urine Bacteria Negative /HPF (NONE-FEW) Urine Mucus None /HPF (NONE-FEW) ED Course/Re-evaluation Clinical Indication for ER IV: Hydration, IV Access ED Course Patient was admitted to an examination room. H&P was done. The pharyngeal diagnoses was considered. On clinical examination. Patient has a benign nonsurgical abdomen. Primarily he's having back pain and body pain. This he ran out of his opiates 24 hours ago. She has vomiting and diarrhea, likely secondary to opiate withdrawal. Patient's diagnostic laboratory studies are unremarkable. He is treated with IV Zofran and Dilaudid. He feels much better. Hypoxic but tolerates room air O2 and is discharged home. His medications are refilled. He is advised to follow-up with oncology clinic. Decision to Disposition Date: Apr 08, 2018 Decision to Disposition Time: 19:21 Depart Departure Latest Vital Signs Vital Signs Date Time Temp Pulse Resp B/P (MAP) Pulse Ox O2 Delivery O2 Flow Rate FiO2 04/08/18 21:00 132/73 (92) 04/08/18 20:35 76 96 04/08/18 19:04 98.7 19 Room Air Impression: Primary Impression: Prostate CA Additional Impressions: Opiate withdrawal Bone metastasis Condition: Improved Disposition: HOME OR SELF-CARE New Scripts Oxycodone Hcl (OXYCONTIN) 10 Mg Tab.er.12h 10 MG PO Q12H Y for breakthrough pain, #60 TAB Prov: RODRIGUE DUFF DO 04/08/18 Oxycodone Hcl (OXYCONTIN) 30 Mg Tab.er.12h 30 MG PO TID for metastatic prostate pain relie, #90 Prov: RODRIGUE DUFF DO 04/08/18 Patient Instructions: Back Pain (ED), Prostate Cancer (GEN) Additional Instructions: Follow-up with oncology clinic as soon as possible necessary Problem Qualifiers RODRIGUE DUFF DO Apr 08, 2018 18:59
[2018-04-08] MEDS ORDERED: NS(*) 0.9% 1000 ML BAG 1,000 ML IV ONE (19:04)
[2018-04-08] MEDS ORDERED: HYDROmorphone* 1 MG/ML 1 MG/ML ML IVP ONE (19:05)
[2018-04-08] MEDS ORDERED: ONDANSETRON 4 MG/2 ML VIAL IVP ONE (19:05)
[2018-04-08] MEDS ORDERED: OXYC-830 PO (19:29)
[2018-04-08] MEDS ORDERED: OXYC-823 PO (19:29)
[2018-04-08 19:51] LABS: PLATELET COUNT, AUTOMATED 193 K/uL (150-450)
[2018-04-08 21:00] VITALS: BP 132/73
== END 2018-04-08 21:15 | disposition home or self-care (01) ==
LOC: ER 19:15
DX: C61 Malignant neoplasm of prostate (principal); F11.23 Opioid dependence with withdrawal; C79.51 Secondary malignant neoplasm of bone
CPT/HCPCS: 81001; 82150; 83690; 85025; 96361; 96374; 96375; 99284; J1170; J2405; J7030; 82040; 82247; 82310; 82374; 82435; 82565; 82947; 84075; 84132; 84155; 84295; 84450; 84460; 84520

== ENCOUNTER → 2018-04-09 | Outpatient (REF) | payer MEDICARE | LOC: ZZSENDIN 13:58 | PROVIDERS: ATTEND Urology | DX: C61 Malignant neoplasm of prostate (principal) | CPT/HCPCS: 84153; 84403 ==

== ENCOUNTER → 2018-04-11 | Outpatient (CLI) | payer MEDICARE ==
--- NOTE | 2018-04-11 13:46 | RADIOLOGY IMAGING REPORT ---
FACILITY: [facility] [place] PATIENT NAME: Noe Curiel : 1940 MR: [id number] V: [id number] EXAM DATE: ORDERING PHYSICIAN: NATHALIE CODY TECHNOLOGIST: [facility] Patient: Noe Curiel : 1940 Visit/Account:[id number] Date of Sevice: 04/11/2018 WHOLE BODY BONE SCAN HISTORY: Prostate cancer, low back pain and generalized bony pain TECHNIQUE: 24.6 mCi technetium 99m HDP was injected intravenously. Delayed anterior and posterior wh ole body gamma camera images were obtained. Additional gamma camera images: Right left lateral skull COMPARISON: Bone scan August 01, 2017 FINDINGS: Bone radiotracer activity: Numerous focal areas of isotope uptake are again seen throughout the calv arium, bilateral ribs, cervical, thoracic and lumbar spine, pelvis, shoulders, scapula and sternum si milar to the prior study when allowing for the difference in imaging technique. There are however in creasing areas of isotope uptake now seen in the femoral and humeral shafts bilaterally. Extraosseous radiotracer activity: Unremarkable. Renal and urinary collecting system activity: There is increased isotope uptake seen in the left ramana al pelvis relative to the right. This could be related to pyelocaliectasis versus left hydronephrosi s IMPRESSION: Increased isotope uptake seen throughout the skeleton consistent with known osseous metastases. The sites of generalized increased include the femoral and humeral shafts bilaterally Increased uptake seen in the left renal collecting system relative to the right. This could be relat ed to pyelocaliectasis versus left hydronephrosis Report Dictated By: Yvette Encarnacion MD at 04/11/2018 1:36 PM Report E-Signed By: Yvette Encarnacion MD at 04/11/2018 1:42 PM WSN:[email or web address]
== END ==
LOC: NUC 05:18
PROVIDERS: ATTEND Urology
DX: C79.51 Secondary malignant neoplasm of bone (principal)
CPT/HCPCS: 78306; A9503

== ENCOUNTER → 2018-04-11 | Outpatient (CLI) | payer MEDICARE ==
[~2018-04-11] MED LIST changes: +GADOBENATE 529MG/1ML 15ML VIAL IVP ONE
--- NOTE | 2018-04-11 14:10 | RADIOLOGY IMAGING REPORT ---
FACILITY: [facility] [place] PATIENT NAME: Noe Curiel : 1940 MR: [id number] V: [id number] EXAM DATE: ORDERING PHYSICIAN: BLAS GUTIERREZ TECHNOLOGIST: Location: [facility] Patient: Noe Curiel : 1940 Visit/Account:[id number] Date of Sevice: 04/11/2018 EXAMINATION: MRI Lumbar spine without and with intravenous contrast HISTORY: Low back pain. Lumbar radiculopathy. Prostate cancer. COMPARISON: Lumbar spine MRI dated 05/24/2013. TECHNIQUE: Multi-planar, multi-sequence lumbar spine MRI was performed before and after IV contrast. CONTRAST: 15 mL of IV MultiHance FINDINGS: Alignment: 6 mm of anterior listhesis of L3 over L4. 3 mm of retrolisthesis of L1 over L2. Vertebral marrow signal: Extensive confluent and patchy T1 hypointensity throughout the included bone s consistent with metastasis. No evidence of acute fracture. No evidence of extraosseous or epidural tumor. Distal thoracic cord: Negative. Conus: negative, terminates at T12-L1 Cauda equina: Negative. Paravertebral soft tissues: Postsurgical changes. Otherwise negative. Visualized abdominal and pelvic structures: Cholelithiasis. Enhancement pattern: Mild enhancement in the osseous metastases. Disc Spaces: Lower thoracic spine: Mild degenerative changes without stenosis. L1-2: Grade 1 retrolisthesis with circumferential disc bulge and facet hypertrophy. No significant sp inal canal stenosis. Mild to moderate left and moderate right neural foraminal stenosis. Worsened com pared with 2012. L2-3: Circumferential disc bulge and facet hypertrophy. No significant spinal canal stenosis. Moderat e bilateral neural foraminal stenosis. No significant change. L3-4: Grade 1 anterior listhesis. Circumferential disc bulge, facet hypertrophy, and ligamentum flavu m thickening. Mild spinal canal stenosis. Moderate bilateral neural foraminal stenosis. Worsened comp ared with 2012. L4-5: Postop decompression and fusion. No spinal canal stenosis. Mild bilateral neural foraminal sten osis. No significant change. L5-S1: Postop decompression and fusion. No canal stenosis. Mild bilateral neural foraminal stenosis. No significant change. IMPRESSION: 1. Extensive confluent and patchy bone marrow signal abnormality consistent with metastasis. No evide nce of acute fracture or epidural tumor extension. 2. Multilevel degenerative disc disease and facet hypertrophy with grade 1 anterior listhesis of L3 o khloe L4 and grade 1 retrolisthesis of L1 over L2. Findings are worsened at L1-L2 and L3-L4 compared wi 2012. Otherwise no significant interval change. 3. Cholelithiasis. Report Dictated By: Adam Gamez MD at 04/11/2018 1:58 PM Report E-Signed By: Adam Gamez MD at 04/11/2018 2:06 PM WSN:[email or web address]
== END ==
LOC: MRI 04:06
PROVIDERS: ATTEND Family Medicine
DX: C79.51 Secondary malignant neoplasm of bone (principal); M51.36 Other intervertebral disc degeneration, lumbar region
CPT/HCPCS: 72158; A9577

== ENCOUNTER 2018-04-18 12:01 | Outpatient (RCR) | payer MEDICARE ==
[~2018-04-18 12:01] MED LIST changes: -BICA50TA36 PO; +BICA50TA41 PO; +BISA10SU62 RC; +DOCU-416 PO; -GADOBENATE 529MG/1ML 15ML VIAL IVP ONE
[2018-04-22] MEDS ORDERED: FENT1PAT40 TD ×3 (13:04→13:44)
[2018-04-22] MEDS ORDERED: MORP100S32 PO ×3 (13:04→13:44)
== END 2018-05-08 12:28 | disposition home or self-care (01) ==
LOC: RAON 12:01
PROVIDERS: ATTEND Radiology Radiation Oncology
DX: Z51.0 Encounter for antineoplastic radiation therapy (principal); C61 Malignant neoplasm of prostate; C79.51 Secondary malignant neoplasm of bone; E11.9 Type 2 diabetes mellitus without complications; Z79.899 Other long term (current) drug therapy; Z87.891 Personal history of nicotine dependence
CPT/HCPCS: 36415; 77280; 77290; 77295; 77300; 77334; 77412

== ENCOUNTER 2018-04-22 09:42 | Outpatient (RCR) | payer MEDICARE ==
[~2018-04-22 09:42] MED LIST changes: +ALTEPLASE RECOMB 2 MG VIAL IVP PRN; +DEXTROSE 5%(*) 100 ML BAG 100 ML IVPB PRN; +HEPARIN FLSH (PORT) 500 UN/5ML IVP PRN; +LIDOCAINE/SOD BICARB 8.4% SYR ID PRN; +NS(*) 0.9% 100 ML BAG 100 ML IVPB PRN; +NS(*) 0.9% 500 ML BAG 500 ML IV PRN; +WATER FOR INJ,STERILE 20 ML IVP PRN
[2018-04-22 10:01] VITALS: BP 141/74
[2018-04-22] MEDS ORDERED: MORP100S32 PO ×3 (13:04→13:44)
[2018-04-22] MEDS ORDERED: FENT1PAT40 TD ×3 (13:04→13:44)
--- NOTE | 2018-04-22 15:58 | ONCOLOGY FOLLOW UP NOTE ---
EVENT DATE: April 22, 2018 CHIEF COMPLAINT/REASON FOR VISIT Mr. Curiel is a pleasant, 78-year-old gentleman with progressive metastatic pancreatic cancer, here for followup. HISTORY OF PRESENT ILLNESS Sharif returns. Earlier in the year, we discussed Provenge as well as alternative chemotherapy options, such as carboplatin. He decided that the frequent trips to [place] for Provenge were too prohibitive for him, and he was not interested in further chemotherapy. He is resistant to hormonal therapy. He is now ready for hospice. We recommended it to him back in December 2017, but he is now ready for it. He thinks he would prefer the inpatient unit as he lives alone and has fear of being alone during the dying process. I do believe that his life expectancy is short at this time and that the cancer continues to be progressive. His PSA is now above 1000, which is higher than any time it had been before. He considers his pain as a 15/10. He is currently taking a morphine equivalent daily dose of approximately 300 mg daily. He is taking OxyContin one tablet every four hours as well as two to three short-acting oxycodone every four hours. With this, the pain improves from a "15 to a 12." Thus, he does get some relief, but it is short-lived and mild. PAST MEDICAL HISTORY 1. Metastatic prostate cancer. 2. Diabetes. 3. Glaucoma. 4. Hyperlipidemia. PAST SURGICAL HISTORY 1. Radical prostatectomy in 1999. 2. Distant surgery many years ago. SOCIAL HISTORY The patient has presented by himself. He is retired and lives by himself. He takes care of multiple acres and several trees. He enjoys woodworking. REVIEW OF SYSTEMS CONSTITUTIONAL: No fever or chills. Positive profound fatigue, weakness, and pain. NEUROLOGIC: He does complain of neuropathic pain. MUSCULOSKELETAL: Chronic back pain, seems to be progressive. CARDIOVASCULAR: No chest pain, dyspnea on exertion. RESPIRATORY: No shortness of breath, wheeze, cough. GASTROINTESTINAL: No nausea or vomiting. GENITOURINARY: No dysuria or hematuria. PSYCHIATRIC: No anxiety or depression. Positive suicidal thoughts at times. We discussed this in detail today. SKIN: No concerning rashes or lesions. LYMPHATIC: No concerning lumps or bumps. PHYSICAL EXAMINATION VITAL SIGNS: Blood pressure 141/74, pulse 72, respiratory rate 16, temperature 97.0 Fahrenheit, oxygen saturation 98% on room air. PAIN: "15" FATIGUE: 07/23 GENERAL: Stable condition, resting in a wheelchair. ECOG performance status of 3 to 4. He is in moderate painful distress sitting in the chair today. NEUROLOGIC: Numbness continues in the feet and into the legs. He has neuropathic pain as well. PSYCHIATRIC: We discussed his suicidal ideation. He does not have an active plan. This is more of a wish to as opposed to plans to commit suicide. After discussion, he would like to enter hospice care and try the best as possible to have a peaceful . Full exam deferred today due to amount of time spent in counseling and coordination of care. IMPRESSION AND PLAN Mr. Curiel is a very pleasant, 78-year-old gentleman with the following: Metastatic prostate cancer with an initial Velma score of 7, but now has resistant hormone-refractory and chemo-refractory disease. He is not interested in other chemotherapy options. He is no a longer a candidate for Provenge as it would not work in time to provide relief. We had an extensive discussion about hospice, and he plans to enroll with inpatient hospice today. I answered all of his many questions. BILLING Return visit level 5. Total time 45 minutes, counseling time 20. Pain management done. We plan to transition him to a fentanyl patch 50 mcg daily with morphine 20 to 40 mg q.1 hour as needed. This is roughly an equivalent dosing to his current levels, and so it will likely need to increase, and I defer to hospice. I am happy to assist if needed. MTDD
== END 2018-05-08 13:47 | disposition home or self-care (01) ==
LOC: ONC 09:42
PROVIDERS: ATTEND Internal Medicine
DX: C61 Malignant neoplasm of prostate (principal); Z92.21 Personal history of antineoplastic chemotherapy
CPT/HCPCS: 96523; G0463; J1642; 84153; 84403; 99212